=== PATIENT | female | born 1975 | race African-American/Black ===

== ENCOUNTER 2017-01-30 16:51 | Emergency (ER) | payer MEDICAID ==
[~2017-01-30] VITALS: Ht 157.5 cm; Wt 79.4 kg
[~2017-01-30 16:51] MED LIST: CHOL400C7; OMEP20TA69; SIMVPOW2; TOPAMAX; ZOCOR
[2017-01-30] MEDS ORDERED: TETRACAINE HCL 0.5% OPTH(EYE) SOLN 4ML EACHEYE ONE ×2 (17:45→19:30)
[2017-01-30 19:43] VITALS: BP 140/80
== END 2017-01-30 19:44 | disposition home or self-care (01) ==
LOC: ER 16:59
DX: H10.33 Unspecified acute conjunctivitis, bilateral (principal); E11.9 Type 2 diabetes mellitus without complications; K21.9 Gastro-esophageal reflux disease without esophagitis; E78.5 Hyperlipidemia, unspecified; G43.909 Migraine, unspecified, not intractable, without status migrainosus; F17.210 Nicotine dependence, cigarettes, uncomplicated; Z88.2 Allergy status to sulfonamides; Z88.6 Allergy status to analgesic agent; Z88.1 Allergy status to other antibiotic agents; Z88.8 Allergy status to other drugs, medicaments and biological substances

== ENCOUNTER 2017-03-18 20:20 | Emergency (ER) | payer MEDICAID ==
[~2017-03-18] VITALS: Ht 157.5 cm; Wt 82.6 kg
[2017-03-18 20:54] VITALS: BP 154/94
== END 2017-03-18 23:07 | disposition left against medical advice (07) ==
LOC: ER 20:57
DX: M25.531 Pain in right wrist (principal); M54.5 Low back pain; V89.2XXA Person injured in unspecified motor-vehicle accident, traffic, initial encounter; Y93.89 Activity, other specified; Y99.8 Other external cause status; Y92.89 Other specified places as the place of occurrence of the external cause
CPT/HCPCS: 73110